=== PATIENT | male | born 1995 | race Caucasian/White ===

== ENCOUNTER 2017-02-26 23:46 | Emergency (ER) | payer BC ==
[~2017-02-26] VITALS: Ht 175.3 cm; Wt 104.5 kg
[2017-02-26 23:53] VITALS: BP 156/94; TEMP 98.6
[2017-02-27] MEDS ORDERED: AMOXICILLIN 8751 TAB PO (01:43)
[2017-02-27 01:46] VITALS: PULSE 84
== END 2017-02-27 01:48 | disposition home or self-care (01) ==
LOC: COL.ER 23:46
DX: S01.352A Open bite of left ear, initial encounter (principal); W54.0XXA Bitten by dog, initial encounter